=== PATIENT | male | born 1980 | race Caucasian/White ===

== ENCOUNTER 2017-11-15 11:41 | Outpatient (CLI) | payer OTHER ==
[2017-11-15 13:24] LABS: ALBUMIN 3.8 g/dL (3.4-5.0); ANION GAP 13.7 (8-16); CARBON DIOXIDE 26.2 mmol/L (21-32); CHOL/HDL RATIO 4.9 (1-4.5); CREATININE 1.1 mg/dL (0.7-1.3); POTASSIUM 3.9 mmol/L (3.5-5.1); THYROID STIMULATING HORMONE 2.3 uIU/mL (0.34-3.74); TOTAL BILIRUBIN 0.3 mg/dL (0.0-1.0)
[2017-11-16 10:11] LABS: T4 (THYROXINE) 7.9 ug/dL (4.5-12.0)
== END 2017-11-15 22:17 | disposition home or self-care (01) ==
LOC: MLB 11:41
DX: Z00.00 Encounter for general adult medical examination without abnormal findings (principal)
CPT/HCPCS: 36415; 80053; 83036; 84436; 84443

== ENCOUNTER 2018-09-06 22:00 | Emergency (ER) | payer OTHER ==
[~2018-09-06] VITALS: Ht 175.3 cm; Wt 93.0 kg
[2018-09-06 22:11] VITALS: BP 135/88
--- NOTE | 2018-09-06 22:12 | NUR ---
TO BED #5 AMBULATORY , REPORT GIVEN TO BRYANT WALTON
--- NOTE | 2018-09-06 22:20 | NUR ---
38 YO M BIB W/C/O COLD SYMPTOMS. PT STATES NASAL CONGESTION , RHINORRHEA, SNEEZING, AND FEVERS X2DAYS. PT AFEBRIAL . PT DENIES ANY BODY ACHES, COUGH ,CP, SOB AT THIS TIME.LS CLEAR THROUGHOUT, RR EVEN AND UNLABORED, ABD SOFT, NON TENDER. ER MD MADE AWARE. WILL CONTINUE TO MONITOR. PT POSITIONED FOR COMFORT.
--- NOTE | 2018-09-06 22:25 | NUR ---
Dr. Alfaro evaluating patient at bedside.
[2018-09-06] MEDS ORDERED: PHENYLEPHRINE 0.5% 15 ML BTL NS ONE (22:40)
[2018-09-06] MEDS ORDERED: KETOROLAC 30 MG/ML VIAL IM ONE (22:40)
--- NOTE | 2018-09-06 22:57 | NUR ---
PT TALKING WITH FAMILY AT BEDSID IN NON APPEARENT DISTRESS. WILL CONTINUE TO MONITOR
[2018-09-06 23:16] VITALS: BP 135/88
--- NOTE | 2018-09-06 23:16 | NUR ---
Patient discharged with v/s stable. Written and verbal after care instructions given and explained. Patient alert, oriented and verbalized understanding of instructions. Ambulatory with steady gait. All questions addressed prior to discharge. ID band removed. Patient advised to follow up with PMD. Rx of NAPROSYN AND SUDAFED WAS given. Patient educated on indication of medication including possible reaction and side effects. Opportunity to ask questions provided and answered.
== END 2018-09-06 23:16 | disposition home or self-care (01) ==
LOC: MED 22:00
DX: J06.9 Acute upper respiratory infection, unspecified (principal); J02.8 Acute pharyngitis due to other specified organisms; B97.89 Other viral agents as the cause of diseases classified elsewhere; Z90.49 Acquired absence of other specified parts of digestive tract
CPT/HCPCS: 36415; 87081; 87804; 96372; 99283; J1885

== ENCOUNTER 2019-05-31 18:20 | Outpatient (CLI) | payer OTHER | END 2019-05-31 20:15 | disposition home or self-care (01) | LOC: MRD 18:20 | DX: M79.671 Pain in right foot (principal) | CPT/HCPCS: 73630 ==

== ENCOUNTER 2020-02-12 12:08 | Outpatient (CLI) | payer OTHER ==
[2020-02-12 12:43] LABS: BASOPHILS % (AUTO) 0.9 % (0.0-2.0); EOSINOPHILS # (AUTO) 0.2 K/uL (0-0.4); EOSINOPHILS % (AUTO) 3.9 % (0.0-4.0); HEMATOCRIT 37.5 % (36-52); HEMOGLOBIN 12.5 g/dL (12.0-18.0); LYMPHOCYTES # (AUTO) 2.4 K/uL (2.0-11.5); LYMPHOCYTES % (AUTO) 45.6 % (20.5-51.1); MEAN CORPUSCULAR HEMOGLOBIN 27 pg (27-31); MEAN CORPUSCULAR HGB CONC 34 g/dL (33-37); MEAN CORPUSCULAR VOLUME 81.9 fL (80-94); MONOCYTES # (AUTO) 0.3 K/uL (0.8-1.0); MONOCYTES % (AUTO) 5.8 % (1.7-9.3); NEUTROPHILS # (AUTO) 2.3 K/uL (1.8-7.7); NEUTROPHILS % (AUTO) 43.8 % (42.2-75.2); PLATELET COUNT (AUTO) 308 K/uL (140-450); RED BLOOD CELL COUNT(AUTO) 4.57 MIL/uL (4.20-6.10); RED CELL DISTRIBUTION WIDTH 12.5 % (11.6-13.7); WHITE BLOOD COUNT (AUTO) 5.3 K/uL (4.8-10.8)
[2020-02-12 13:50] LABS: ALBUMIN 3.4 g/dL (3.4-5.0); ANION GAP 11.7 (8-16); CARBON DIOXIDE 26.1 mmol/L (21-32); CHOL/HDL RATIO 5.1 (1-4.5); CREATININE 1.2 mg/dL (0.6-1.3); POTASSIUM 3.8 mmol/L (3.5-5.1); THYROID STIMULATING HORMONE 2.57 uIU/mL (0.34-3.74); TOTAL BILIRUBIN 0.3 mg/dL (0.0-1.0)
== END 2020-02-12 19:48 | disposition home or self-care (01) ==
LOC: MLB 12:08
PROVIDERS: ATTEND Internal Medicine Gastroenterology
DX: E55.9 Vitamin D deficiency, unspecified (principal); I10 Essential (primary) hypertension
CPT/HCPCS: 36415; 80053; 82306; 83036; 84443; 85025

== ENCOUNTER 2020-03-13 16:15 | Outpatient (CLI) | payer OTHER | END 2020-03-13 21:11 | disposition home or self-care (01) | LOC: MRD 16:15 | PROVIDERS: ATTEND Podiatrist Foot & Ankle Surgery | DX: M19.171 Post-traumatic osteoarthritis, right ankle and foot (principal); M19.172 Post-traumatic osteoarthritis, left ankle and foot; M79.672 Pain in left foot; M79.671 Pain in right foot | CPT/HCPCS: 73630 ==

== ENCOUNTER 2020-10-29 10:10 | Outpatient (CLI) | payer OTHER ==
[2020-10-29 10:29] LABS: BASOPHILS % (AUTO) 0.7 % (0.0-2.0); EOSINOPHILS # (AUTO) 0.3 K/uL (0-0.4); EOSINOPHILS % (AUTO) 4.1 % (0.0-4.0); HEMATOCRIT 39.1 % (36-52); LYMPHOCYTES # (AUTO) 2.6 K/uL (2.0-11.5); LYMPHOCYTES % (AUTO) 40.2 % (20.5-51.1); MEAN CORPUSCULAR HEMOGLOBIN 27 pg (27-31); MEAN CORPUSCULAR HGB CONC 33 g/dL (33-37); MEAN CORPUSCULAR VOLUME 79.6 fL (80-94); MONOCYTES # (AUTO) 0.3 K/uL (0.8-1.0); MONOCYTES % (AUTO) 4.9 % (1.7-9.3); NEUTROPHILS # (AUTO) 3.2 K/uL (1.8-7.7); NEUTROPHILS % (AUTO) 50.1 % (42.2-75.2); PLATELET COUNT (AUTO) 364 K/uL (140-450); RED BLOOD CELL COUNT(AUTO) 4.91 MIL/uL (4.20-6.10); RED CELL DISTRIBUTION WIDTH 13.9 % (11.6-13.7); WHITE BLOOD COUNT (AUTO) 6.4 K/uL (4.8-10.8)
[2020-10-29 10:59] LABS: ANION GAP 13.6 (8-16); CARBON DIOXIDE 28.6 mmol/L (21-32); CREATININE 1.1 mg/dL (0.6-1.3); POTASSIUM 4.2 mmol/L (3.5-5.1); THYROID STIMULATING HORMONE 2.9 uIU/mL (0.34-3.74)
[2020-10-29 11:54] LABS: ALBUMIN 3.8 g/dL (3.4-5.0); CHOL/HDL RATIO 4.7 (1-4.5); TOTAL BILIRUBIN 0.3 mg/dL (0.0-1.0)
[2020-10-29 12:00] LABS: APPEARANCE,URINE CLEAR (CLEAR); BILIRUBIN,URINE NEGATIVE (NEGATIVE); BLOOD, URINE TRACE-I (NEGATIVE); COLOR,URINE YELLOW (YELLOW); LEUKOCYTE ESTERASE ,URINE NEGATIVE (NEGATIVE); NITRITE, URINE NEGATIVE (NEGATIVE); UGLUCOSE NEGATIVE (NEGATIVE)
[2020-10-29 12:14] LABS: RBC,URINE 0-5 /HPF (0-5); WBC,URINE 0-5 /HPF (0-5)
[2020-10-30 09:06] LABS: T4 FREE (DIRECT) 1.33 ng/dL (0.82-1.77)
== END 2020-10-29 20:05 | disposition home or self-care (01) ==
LOC: MLB 10:10
DX: R53.83 Other fatigue (principal); B94.8 Sequelae of other specified infectious and parasitic diseases; I10 Essential (primary) hypertension; E55.9 Vitamin D deficiency, unspecified; Z13.0 Encounter for screening for diseases of the blood and blood-forming organs and certain disorders involving the immune mechanism; Z13.1 Encounter for screening for diabetes mellitus; Z13.220 Encounter for screening for lipoid disorders
CPT/HCPCS: 36415; 71046; 80053; 81001; 82306; 83036; 84439; 84443; 85025; 87086